=== PATIENT | male | born 1955 | race Caucasian/White ===

== ENCOUNTER 2017-10-19 12:59 | Inpatient (IN) | payer BC ==
[2017-10-19] MEDS ORDERED: NS 0.9% 1000 ML* 1,000 ML IV ONE ×3 (14:15→19:31)
[2017-10-19] MEDS ORDERED: Morphine INJ* 2 MG/ML 1 ML CARPUJECT IV ONE (14:15)
[2017-10-19 14:58] LABS: ABS Basophils 0 10^3/ul (0-0.2); ABS Eosinophils 0 10^3/ul (0-0.6); ABS Lymphocytes 0.7 10^3/ul (1.0-4.8); ABS Monocytes 0.6 10^3/ul (0-0.8); ABS Neutrophils 7.2 10^3/ul (1.5-7.7); ABS Nucleated RBC 0 10^3/ul; Eosinophil % 0 % (0-6); Hematocrit 21 % (42-52); Hemoglobin 7.3 g/dl (14.0-18.0); Lymphocyte % 7.9 % (25-47); Mean Corpuscular HGB Conc 35 g/dl (31-36); Mean Corpuscular Hemoglobin 37 pg (27-31); Mean Corpuscular Volume 105 fL (80-94); Mean Platelet Volume 8 um3 (7.4-10.4); Nucleated Red Blood Cells % 0; Platelet Count 189 10^3/ul (150-450); Red Blood Count 1.97 10^6/ul (4.0-5.4); Red Cell Distribution Width 15 % (10.5-15); White Blood Count 8.5 10^3/ul (3.5-10.8)
[2017-10-19 15:10] LABS: EGFR Non-African American 98.6 (>60)
[2017-10-19] MEDS ORDERED: fentaNYL* 50 MCG/ML 2 ML VIAL (100 MCG VIAL) IV SLOW PU ONE ×2 (15:16→17:13)
[2017-10-19] MEDS ORDERED: Iohexol 300* (CONTRAST) 10 ML SDV IV ONE (15:48)
--- NOTE | 2017-10-19 16:48 | RAD ---
CLINICAL HISTORY: Abdominal pain, back pain COMPARISON: September 22, 2017 TECHNIQUE: Multiple contiguous axial CT scans were obtained of the abdomen and pelvis after the administration of intravenous contrast. Coronal and sagittal multiplanar reformations are submitted for review. Oral contrast was administered. Delayed images were obtained through the abdomen and pelvis. Additionally, small [id number] images were obtained through the lumbar spine with coronal and sagittal multiplanar reformations. FINDINGS: LUNG BASES: The lung bases are clear. LIVER: The liver is normal in shape, size, contour, and attenuation. BILE DUCTS: There is no intrahepatic or extrahepatic biliary dilatation. GALLBLADDER: The gallbladder is normal, without pericholecystic inflammatory change. PANCREAS: The pancreas is normal, without mass or ductal dilatation. SPLEEN: Normal in size and appearance. UPPER GI TRACT: Evaluation of the gastrointestinal tract is limited by incomplete gastric distention. There is mucosal thickening of the distal esophagus and of the proximal body and cardia of the stomach. SMALL BOWEL AND MESENTERY: The small bowel is normal in contour, course, and caliber. There is no obstruction or dilatation. COLON: The colon is normal in contour, course, caliber. There is no pericolonic inflammatory change. There is large amount of stool throughout the colon ADRENALS: Normal bilaterally. KIDNEYS: The kidneys are normal in shape, size, contour, and axis. There is no hydronephrosis or nephrolithiasis. BLADDER: The bladder is smooth in contour. PELVIC ORGANS: The prostate is diffusely enlarged. The seminal vesicles are symmetric. AORTA: The aorta is normal. IVC: Unremarkable LYMPH NODES: There are multiple enlarged lymph nodes along the gastrohepatic ligament and in the retroperitoneum at the level of the celiac axis and within the aortocaval space. These have progressed when compared to September 22, 2017, the largest measuring 2.9 cm in short axis. ABDOMINAL WALL: There are small fat-containing inguinal hernias bilaterally BONES AND SOFT TISSUES: The vertebral bodies are preserved in height. There is mild anterolateral marginal osteophyte formation. There is multifocal lucency of the sacrum which is similar to the previous PET/CT examination. 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 There is no significant osseous neural foraminal narrowing or central canal stenosis. There is mild facet hypertrophic change along the lower lumbar spine OTHER: None IMPRESSION: 1. THERE IS MUCOSAL THICKENING OF THE DISTAL ESOPHAGUS AND PROXIMAL STOMACH CONSISTENT WITH THE HISTORY OF MALIGNANCY. 2. THERE HAS BEEN INTERVAL PROGRESSION OF GASTROHEPATIC AND RETROPERITONEAL LYMPHADENOPATHY WHEN COMPARED TO THE PREVIOUS CT EXAMINATION OF SEPTEMBER 22, 2017. 3. THERE IS MULTIFOCAL LUCENCY OF THE SACRUM WHICH MAY REFLECT OSTEOPENIA VERSUS OSTEOLYTIC METASTATIC DISEASE, SIMILAR TO THE PREVIOUS CT EXAMINATION. 4. THERE IS LARGE AMOUNT OF STOOL THROUGHOUT THE COLON. 5. ENLARGED PROSTATE. 6. SMALL BILATERAL FAT-CONTAINING INGUINAL HERNIAS.
[2017-10-19] MEDS ORDERED: PROCHLORPERAZINE INJ 5 MG/ML 2 ML VIAL IV PRN (18:33)
[2017-10-19] MEDS ORDERED: Acetaminophen TAB* 325 MG PO PRN (18:33)
[2017-10-19] MEDS ORDERED: Magnesium Hydroxide LIQ* 30 ML UDC PO ONE (18:33)
[2017-10-19] MEDS ORDERED: LORazepam INJ* 2 MG/ML 1 ML VIAL IV PUSH ONE (18:44)
[2017-10-19] MEDS: HYDROmorphone INJ* 2 MG/ML CARPUJECT SYRINGE IV SLOW PU PRN ×2 (19:07→22:55)
--- NOTE | 2017-10-19 19:24 | RAD ---
HISTORY: Shortness of breath, cough COMPARISONS: None relevant VIEWS: 1: frontal portable view of the chest at 7:00 PM FINDINGS: LINES AND TUBES: A right-sided chest port is noted with the tip overlying the superior vena cava. CARDIOMEDIASTINAL SILHOUETTE: The cardiomediastinal silhouette is normal for portable technique. PLEURA: The costophrenic angles are sharp. No pleural abnormalities are noted. LUNG PARENCHYMA: The lungs are clear. ABDOMEN: The upper abdomen is clear. There is no subphrenic gas. BONES AND SOFT TISSUES: No bone or soft tissue abnormalities are noted. IMPRESSION: NO ACTIVE CARDIOPULMONARY DISEASE.
[2017-10-19] MEDS: Docusate CAP* 100 MG PO SCH (21:17)
[2017-10-19] MEDS: Heparin VIAL(*) 5000 UNITS/ML VIAL (FIVE THOUSAND) SUBCUT SCH (21:17)
--- NOTE | 2017-10-19 22:50 | HP ---
CC: Dr. Mari; Dr. Banks; Dr. Chavez * HISTORY AND PHYSICAL: DATE OF ADMISSION: 10/19/17 PRIMARY CARE PROVIDER: Dr. Mari. CONSULTING SURGEON: Dr. Chavez. CONSULTING ONCOLOGIST: Dr. Banks. MY ATTENDING PHYSICIAN WHILE IN THE HOSPITAL: Dr. Samantha Robles * (report dictated by Fletcher Carter NP). CHIEF COMPLAINT: Abdominal pain. HISTORY OF PRESENT ILLNESS: Mr. Beckett is a 62-year-old male patient, he carries really only a history of metastatic esophageal cancer, who recently underwent clinical trial of PET scan with a new isotope, that isotope is trastuzumab, underwent that on the middle of last month, he did have finished chemo on the of last month. He initially was doing well, but over the last week, he has been having abdominal discomfort, which has been diffuse and radiating into his back. The patient had the PET scan, he got the results, they noted that the chemo treatment that he has been taking had not been helping. So , they went to go visit his family in [place]. The patient was there for the last week. He has been having intermittent abdominal discomfort. He has been having pain, mostly diffuse in his abdomen. It has been wrapping into his back. He has not had any fevers or chills or any vomiting or diarrhea. He has been having constipation. He has not had a bowel movement in the last couple of days. He denied having any chest pain or any shortness of breath, but there was concern because his discomfort in the last 24 hours ago much worse, and he describes it as a sharp, stabbing pain around the entire, again trunk of his abdomen, going into his back. He again denied any chest pain, shortness of breath, or fevers, or any associated nausea or vomiting today with this, but the pain was really uncontrolled here in the ED. He required several rounds of narcotics, but despite this, he just was not achieving pain control. We were asked to evaluate for admission. PAST MEDICAL HISTORY: Significant for stage IV esophageal cancer. PAST SURGICAL HISTORY: He has had a vasectomy. MEDICATIONS: His home medication includes aspirin 325 p.o. daily as needed. ALLERGIES TO MEDICATIONS: Include PENICILLIN, LEVAQUIN. FAMILY HISTORY: His mother had breast cancer, father had colon cancer, prostate cancer. SOCIAL HISTORY: He does not smoke, does not drink. Surrogate decision maker is his . REVIEW OF SYSTEMS: There is no documented fever. Denied having any significant weight change. There was no double vision. There is no ear discharge. Denies having any rhinorrhea. No sore throat. There is abdominal pain from my HPI. There was no nausea, vomiting. No dysuria, no frequency. There was no seizure, no loss of consciousness. No pruritus and no skin ulcerations. Review of 14 systems completed, all others negative. PHYSICAL EXAMINATION GENERAL: At this time, Mr. Beckett is a 62-year-old male patient, he is sitting in the ED stretcher. He does appear to be in a fair amount of pain. He does not appear to be in any acute respiratory distress. VITAL SIGNS: Blood pressure 120/56, pulse 83, respirations 20, O2 sat 100%, temperature 98.8. HEENT: Head: Atraumatic. Eyes: EOMs are intact. Sclerae are anicteric, not pale. NECK: Supple. Throat: Oral mucosa appears to be moist. No oropharyngeal erythema. LUNGS: Clear to auscultation. No wheezes, rales, or rhonchi. HEART: Sounds S1, S2. Regular rate and rhythm. No murmurs, rubs, or gallops. ABDOMEN: It was tense. Bowel sounds were present. I was unable to reproduce this pain on exam. He had no rebound tenderness, no guarding. EXTREMITIES: Pulses were 2+ throughout. He is moving all 4 extremities with 5/ 5 strength. NEUROLOGIC: The patient is awake, alert, and oriented x3. Tongue midline. Consultant Rn were equal. He had no gross focal deficits. SKIN: Intact. DIAGNOSTIC STUDIES/LAB DATA: WBC of 8.5, RBC of 1.97, hemoglobin 7.3, hematocrit 21, platelet count 189. The sodium was 135, potassium was 4.5, chloride of 104, bicarb 25, BUN 49, creatinine of 0.80, glucose of 119, lactate 2.1, calcium 8.9, mag 2. Total bili 0.8, AST 56, ALT 13, alk phos 53. Ammonia 29. CRP at 12. Lipase and amylase both normal. Serology negative for flu. He had a chest x-ray obtained today, no active cardiopulmonary disease. Lumbar spine CT and abdominal pelvis CT. Impression: Mucosal thickening of the distal esophagus and proximal stomach consistent with history of malignancy. There has been interval progression of gastrohepatic and retroperitoneal lymphadenopathy, compared to the previous CT. There is multifocal lucency in the sacrum, which may represent osteopenia versus osteolytic metastatic disease similar to previous CT. There is a large amount of stool throughout the colon. Large prostate, small bilateral fat containing hernias. Old medical records reviewed. ASSESSMENT AND PLAN: Mr. Beckett is a 62-year-old male patient coming into the ED today with complaints of abdominal pain of unclear etiology. We were asked to evaluate for admission. He will be admitted under observation status for: 1. Abdominal pain. Again, etiology is unclear. I did touch base with his oncology group at [facility]. He is seeing a Dr. Starks, the number is [phone]. Dr. Neal spoke to that group earlier, I spoke to the on-call group bert. It was felt that the pain may be related to progression of disease and not related to reaction to his experimental trastuzumab that he received in the middle of last month. I did touch base with our surgeon. They will be evaluating him tomorrow. He does not appear to be toxic. I did touch base with Dr. Banks, who will evaluate tomorrow. Plan will be for pain control , hydration, monitoring him for any worsening symptoms and intervene as appropriately. For the time being, I will hydrate him, I will place him on clear liquid diet, and will continue to follow him closely. 2. Stage IV esophageal cancer. Again, Dr. Banks will be consulting. 3. DVT prophylaxis. High risk. We will be placed on heparin subcu. 4. Code status. Full code. 5. Fluid, electrolytes, and nutrition. He can have a clear liquid diet. I did order normal saline at 100 an hour. TIME SPENT: On the admission was 60 minutes; greater than half the time was spent [id number] with the patient obtaining my history and physical, other half the time was spent going over the plan of care with the patient and implementing the plan of care. I did discuss plan of care with my attending, Dr. Robles; she is in agreement. FLETCHER CARTERFANG [id number]/[facility] #: [id number] BIRD
[2017-10-19] MEDS: NS 0.9% 1000 ML* 1,000 ML IV SCH ×2 (22:54→23:00)
[2017-10-20 01:23] LABS: Urine Appearance Clear; Urine Blood Negative (Negative); Urine Color Yellow; Urine Ketones Trace (Negative); Urine Protein Negative (Negative); Urine Specific Gravity 1.032 (1.010-1.030); Urine Urobilinogen Negative (Negative)
[2017-10-20] MEDS ORDERED: HYDROmorphone INJ* 2 MG/ML CARPUJECT SYRINGE ONE (01:27)
[2017-10-20] MEDS: HYDROmorphone INJ* 2 MG/ML CARPUJECT SYRINGE IV SLOW PU PRN ×6 (01:32→23:24)
[2017-10-20] MEDS: Heparin VIAL(*) 5000 UNITS/ML VIAL (FIVE THOUSAND) SUBCUT SCH (04:55)
[2017-10-20 07:49] LABS: EGFR Non-African American 125.3 (>60)
[2017-10-20] MEDS: Docusate CAP* 100 MG PO SCH ×2 (08:08→21:25)
[2017-10-20] MEDS: Ondansetron INJ* 2 MG/ML VIAL IV PRN ×2 (08:08→23:24)
[2017-10-20 08:22] LABS: INR 1.14 (0.77-1.02)
[2017-10-20 09:43] LABS: ABS Basophils 0 10^3/ul (0-0.2); ABS Eosinophils 0 10^3/ul (0-0.6); ABS Lymphocytes 0.5 10^3/ul (1.0-4.8); ABS Monocytes 0.5 10^3/ul (0-0.8); ABS Neutrophils 4.6 10^3/ul (1.5-7.7); ABS Nucleated RBC 0 10^3/ul; Eosinophil % 0 % (0-6); Hematocrit 17 % (42-52); Lymphocyte % 9.1 % (25-47); Mean Corpuscular HGB Conc 35 g/dl (31-36); Mean Corpuscular Hemoglobin 37 pg (27-31); Mean Corpuscular Volume 105 fL (80-94); Mean Platelet Volume 7 um3 (7.4-10.4); Nucleated Red Blood Cells % 0; Platelet Count 142 10^3/ul (150-450); Red Blood Count 1.63 10^6/ul (4.0-5.4); Red Cell Distribution Width 15 % (10.5-15); White Blood Count 5.6 10^3/ul (3.5-10.8)
--- NOTE | 2017-10-20 10:47 | PN ---
Subjective Date of Service: 10/20/17 Interval History: Pt examined today at the bedside. States that his pain is controlled with Dilaudid. He denies chest pain and denies sob. States he does not feel lightheaded. Denies abdominal pain currently. Admits to nausea and vomiting. Denies loc. States when he does have abd pain its generalized and radiates to his back. ROS-denies fever, denies chills, denies chest pain, denies sob, denies lightheadedness, denies loc, admits to vomiting, states he is constipated, admits to abdominal pain, review of 11 systems completed all others negative, Objective Active Medications: Acetaminophen (Tylenol Tab*) 650 mg PO Q4H PRN PRN Reason: FEVER/PAIN Docusate Sodium (Colace Cap*) 100 mg PO BID [facility] Last Admin: 10/20/17 08:08 Dose: 100 mg Hydromorphone HCl (Dilaudid Inj*) 1 mg IV SLOW PU Q4H PRN PRN Reason: PAIN Sodium Chloride (Ns 0.9% 1000 Ml*) 1,000 mls @ 125 mls/hr IV PER RATE [facility] Last Admin: 10/19/17 23:00 Dose: 125 mls/hr Ondansetron HCl (Zofran Inj*) 4 mg IV Q6H PRN PRN Reason: NAUSEA Last Admin: 10/20/17 08:08 Dose: 4 mg Prochlorperazine Edisylate (Compazine Inj*) 5 mg IV Q6H PRN PRN Reason: NAUSEA/VOMITING Vital Signs - 8 hr 10/20/17 10/20/17 10/20/17 03:40 04:55 05:03 Temperature 98.7 F Pulse Rate 82 Respiratory 18 20 20 Rate Blood Pressure 105/59 (mmHg) O2 Sat by Pulse 93 Oximetry 10/20/17 10/20/17 10/20/17 05:45 07:38 07:45 Temperature 97.5 F Pulse Rate 79 Respiratory 18 16 16 Rate Blood Pressure 113/54 (mmHg) O2 Sat by Pulse 96 Oximetry 10/20/17 08:09 Temperature Pulse Rate Respiratory 20 Rate Blood Pressure (mmHg) O2 Sat by Pulse Oximetry Oxygen Devices in Use Now: None Appearance: 62 y/o male patient, sitting in bed, NAD, Eyes: No Scleral Icterus, PERRLA, - - scerla is noted to be pale, Ears/Nose/Mouth/Throat: NL Teeth, Lips, Gums, Mucous Membranes Moist Neck: NL Appearance and Movements; NL JVP Respiratory: Symmetrical Chest Expansion and Respiratory Effort, Clear to Auscultation Cardiovascular: NL Sounds; No Murmurs; No JVD Abdominal: - - non distended, non tender on exam, bowel sounds present, Lymphatic: No Cervical Adenopathy Extremities: No Edema Skin: No Rash or Ulcers Neurological: Alert and Oriented x 3 Lines/Tubes/Other Access: Clean, Dry and Intact Peripheral IV Result Diagrams: 10/20/17 07:23 10/20/17 07:23 Assess/Plan/Problems-Billing Assessment: 62 y/o male patient presenting to [facility] [place], [place] with complaints of abd pain of unclear etiology, - Patient Problems (1) Esophageal cancer Current Visit: Yes Status: Acute Priority: High Comment: Currently off treatment, has been receiving care in [facility], obtaining records, last tx was in september, oncology consulted, noted on ct abd pelvis adenopahty of retro- peritoneal, and hepatic gastric area along iwth lesion to his sacrum, (2) Anemia Current Visit: Yes Status: Acute Priority: High Comment: Unclear as to why he has had a drop in h and h, he does admit to vomiting but states he does not see coffee ground appearance and has not had tarry stools, he has at times had blood in his mouth from his gums or sinus and states this has been a chronic issue for several months he has seen ent for this per patient, plan to repeat ct abd plevis to eval for retroperitoneal bleed, gi called, onc to see, transfuse two units prbc, repeat h and h now, checking iron studies, b12, folate , hapotoglobin, ldh, retic count, (3) Abdominal pain Current Visit: Yes Status: Acute Priority: High Comment: etiology unclear , today non tender pain controlled with pain medications but requiring 2 mg dilaudid, etiology unclear, surgery to see, repeat ct today to eval for retroperitoneal bleed, Gi to eval, no signs of infection, discussed case with primary oncology group they believe pain may be from progression of his disease and not related to his recent chemo treatments, (4) DVT prophylaxis Current Visit: Yes Status: Acute Priority: High Comment: SCD,s (5) FEN Current Visit: Yes Status: Acute Priority: High Comment: clear liguid diet , (6) Full code status Current Visit: Yes Status: Acute Priority: High Status and Disposition: home when stable,
[2017-10-20 10:50] LABS: Corrected Retic Count 1.3 % (0.5-1.5); Hematocrit for Retic CNT 17 % (42-52); Immature Retic Fraction 0.67; RBC Retic Count 1.61 10^6/ul (4.6-6.2)
--- NOTE | 2017-10-20 11:20 | RAD ---
INDICATION: Abdominal pain. Drop in hemoglobin and hematocrit. COMPARISON: October 19, 2017 CT. TECHNIQUE: Multidetector CT images were obtained from the lung bases to the ischial tuberosities. Evaluation of the viscera is limited without IV contrast. Multiplanar reformation. REPORT: Mild bibasilar airspace consolidation most consistent with atelectasis given volume loss. Trace bilateral pleural effusions new compared with the exam of one day prior. Negative for pericardial effusion. Unremarkable liver. Vicarious excretion of contrast from the CT of one day prior to the gallbladder without concern. Negative for biliary dilatation. Unremarkable pancreas and spleen. Ill-defined thickening of the distal esophagus and esophagogastric junction without change. Propagation of enteric contrast from the exam of one day prior to the colon. No CT abnormality of the small bowel loops, appendix, or colon. Negative for ascites, free air, or significant hernias. Normal adrenal glands. Negative for hydronephrosis. Distended urinary bladder with pyelographic phase contrast from the CT of one day prior indicating urinary retention. Symmetric seminal vesicles. Vasectomy clips. Retrocrural and GE junction through infrarenal retroperitoneal lymphadenopathy better depicted on the contrast exam of one day prior with financial services representative aortocaval node inferior to the renal vessels measuring up to 2.1 x 2.7 cm. Normal diameter abdominal aorta. Physiologic distention of the IVC. Negative for retroperitoneal or superficial soft tissue hematoma. Unchanged osteosclerosis at the anterior margin of the LEFT femoral head compared with a CT from May 24, 2017 without corresponding increased activity on May 24, 2017 PET/CT. IMPRESSION: 1. Negative for retroperitoneal or superficial soft tissue hematoma. 2. Distended urinary bladder with pyelographic phase contrast from the CT of one day prior indicating urinary retention. Negative for hydronephrosis. 3. Extensive retroperitoneal lymphadenopathy as well as thickened distal esophagus and esophagogastric junction better depicted on the contrast-enhanced exam of one day prior. 4. Mild bibasilar airspace consolidation most consistent with atelectasis given volume loss. Trace bilateral pleural effusions new compared with the exam of one day prior.
[2017-10-20 11:40] LABS: Hematocrit 18 % (42-52); Hemoglobin 6.1 g/dl (14.0-18.0)
[2017-10-20] MEDS ORDERED: Bisacodyl SUPP* 10 MG SUPP PR ONE (14:43)
--- NOTE | 2017-10-20 14:58 | PN ---
Progress Note - Progress Note Date of Service: 10/20/17 Note: Brief Surgery Note: (full consult dictated) S: Hx reviewed. Severe (06/22 abd pain yesterday requiring admission for pain control) w/ h/o stage 4 esophageal Ca, s/p recent tx at [facility] in [facility] (~ 2 wks ago ) and just returned on Wednesday, 10/17, from vacation w/ family in [place] (no suspect exposures or ingestions). Has not move bowels in past few days; passing little flatus. Does have some baseline nausea, as well as hemoptysis (vs hematemesis) which predated his dx (March,), though has been darker of late , without sig change in volume. Had been tolerating regular diet [employer]. Currently his pain level is 5-6/10; he states he has not req'd pain med since 0800. O: tmax 99.5; now 98 other VSS GEN: mildly cachectic-appearing male in NAD Heart: reg Lungs: clear w/ few bibasilar fine crackles, R>L Abd: nondistended; some guarding (appears to be voluntary), but w/o tenderness to palp; no palp masses (there are soft, nontender, reducible bilat inguinal hernias) Labs: Laboratory Tests 10/19/17 10/19/17 10/19/17 14:45 14:45 18:40 WBC 8.5 Hgb 7.3 L MCV 105 H Neut % (Auto) 84.4 H Retic Count, Calc BUN 49 H Creatinine 0.80 Lactic Acid 2.1 H* Iron Lactate Dehydrogenase C-Reactive Protein 12.79 H Albumin 3.7 Amylase 31 Lipase 52 10/20/17 10/20/17 10/20/17 07:23 07:23 11:12 WBC 5.6 Hgb 6.0 L* MCV Neut % (Auto) 81.5 Retic Count, Calc 3.4 H BUN 30 H Creatinine 0.65 L Lactic Acid 1.1 Iron 31 L Lactate Dehydrogenase 757 H C-Reactive Protein Albumin Amylase Lipase 10/20/17 11:12 WBC Hgb 6.1 L* MCV Neut % (Auto) Retic Count, Calc BUN Creatinine Lactic Acid Iron Lactate Dehydrogenase C-Reactive Protein Albumin Amylase Lipase CT 10/19/17: personally reviewed and with Dr. Mecenas: CLINICAL HISTORY: Abdominal pain, back pain COMPARISON: September 22, 2017 TECHNIQUE: Multiple contiguous axial CT scans were obtained of the abdomen and pelvis after the administration of intravenous contrast. Coronal and sagittal multiplanar reformations are submitted for review. Oral contrast was administered. Delayed images were obtained through the abdomen and pelvis. Additionally, small [id number] images were obtained through the lumbar spine with coronal and sagittal multiplanar reformations. FINDINGS: LUNG BASES: The lung bases are clear. LIVER: The liver is normal in shape, size, contour, and attenuation. BILE DUCTS: There is no intrahepatic or extrahepatic biliary dilatation. GALLBLADDER: The gallbladder is normal, without pericholecystic inflammatory change. PANCREAS: The pancreas is normal, without mass or ductal dilatation. SPLEEN: Normal in size and appearance. UPPER GI TRACT: Evaluation of the gastrointestinal tract is limited by incomplete gastric distention. There is mucosal thickening of the distal esophagus and of the proximal body and cardia of the stomach. SMALL BOWEL AND MESENTERY: The small bowel is normal in contour, course, and caliber. There is no obstruction or dilatation. COLON: The colon is normal in contour, course, caliber. There is no pericolonic inflammatory change. There is large amount of stool throughout the colon ADRENALS: Normal bilaterally. KIDNEYS: The kidneys are normal in shape, size, contour, and axis. There is no hydronephrosis or nephrolithiasis. BLADDER: The bladder is smooth in contour. PELVIC ORGANS: The prostate is diffusely enlarged. The seminal vesicles are symmetric. AORTA: The aorta is normal. IVC: Unremarkable LYMPH NODES: There are multiple enlarged lymph nodes along the gastrohepatic ligament and in the retroperitoneum at the level of the celiac axis and within the aortocaval space. These have progressed when compared to September 22, 2017, the largest measuring 2.9 cm in short axis. ABDOMINAL WALL: There are small fat-containing inguinal hernias bilaterally BONES AND SOFT TISSUES: The vertebral bodies are preserved in height. There is mild anterolateral marginal osteophyte formation. There is multifocal lucency of the sacrum which is similar to the previous PET/CT examination. 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 There is no significant osseous neural foraminal narrowing or central canal stenosis. There is mild facet hypertrophic change along the lower lumbar spine OTHER: None IMPRESSION: 1. THERE IS MUCOSAL THICKENING OF THE DISTAL ESOPHAGUS AND PROXIMAL STOMACH CONSISTENT WITH THE HISTORY OF MALIGNANCY. 2. THERE HAS BEEN INTERVAL PROGRESSION OF GASTROHEPATIC AND RETROPERITONEAL [facility] Patient Name:CHRISTIN DAN MR:[id number] : 1955 LYMPHADENOPATHY WHEN COMPARED TO THE PREVIOUS CT EXAMINATION OF SEPTEMBER 22, 2017. 3. THERE IS MULTIFOCAL LUCENCY OF THE SACRUM WHICH MAY REFLECT OSTEOPENIA VERSUS OSTEOLYTIC METASTATIC DISEASE, SIMILAR TO THE PREVIOUS CT EXAMINATION. 4. THERE IS LARGE AMOUNT OF STOOL THROUGHOUT THE COLON. 5. ENLARGED PROSTATE. 6. SMALL BILATERAL FAT-CONTAINING INGUINAL HERNIAS. Repeat today w/o constrast: INDICATION: Abdominal pain. Drop in hemoglobin and hematocrit. COMPARISON: October 19, 2017 CT. TECHNIQUE: Multidetector CT images were obtained from the lung bases to the ischial tuberosities. Evaluation of the viscera is limited without IV contrast. Multiplanar reformation. REPORT: Mild bibasilar airspace consolidation most consistent with atelectasis given volume loss. Trace bilateral pleural effusions new compared with the exam of one day prior. Negative for pericardial effusion. Unremarkable liver. Vicarious excretion of contrast from the CT of one day prior to the gallbladder without concern. Negative for biliary dilatation. Unremarkable pancreas and spleen. Ill-defined thickening of the distal esophagus and esophagogastric junction without change. Propagation of enteric contrast from the exam of one day prior to the colon. No CT abnormality of the small bowel loops, appendix, or colon. Negative for ascites, free air, or significant hernias. Normal adrenal glands. Negative for hydronephrosis. Distended urinary bladder with pyelographic phase contrast from the CT of one day prior indicating urinary retention. Symmetric seminal vesicles. Vasectomy clips. Retrocrural and GE junction through infrarenal retroperitoneal lymphadenopathy better depicted on the contrast exam of one day prior with leather goods sales representative aortocaval node inferior to the renal vessels measuring up to 2.1 x 2.7 cm. Normal diameter abdominal aorta. Physiologic distention of the IVC. Negative for retroperitoneal or superficial soft tissue hematoma. Unchanged osteosclerosis at the anterior margin of the LEFT femoral head compared with a CT from May 24, 2017 without corresponding increased activity on May 24, 2017 PET/CT. IMPRESSION: 1. Negative for retroperitoneal or superficial soft tissue hematoma. 2. Distended urinary bladder with pyelographic phase contrast from the CT of one day prior indicating urinary retention. Negative for hydronephrosis. 3. Extensive retroperitoneal lymphadenopathy as well as thickened distal esophagus and esophagogastric junction better depicted on the contrast-enhanced exam of one day prior. 4. Mild bibasilar airspace consolidation most consistent with atelectasis given volume loss. Trace bilateral pleural effusions new compared with the exam of one day prior. A: abd pain and anemia of undetermined etiology in patient w/ advanced esophageal ca; there does not appear to be an acute surgical reason for his pain (no obstruction, evidence of perforation or intraperitoneal bleed. His pain may indeed be disease oriented, but also may be functional GI, i.e. constipation (colicky in nature w/ CT evidence of sig colonic gas and stool. P: if ok w/ hospitalist, will adv diet; try dulcolax supp; may need add'l and ongoing bowel regimen (constipation has been an ongoing issue.) Will follow while he is inhouse.
--- NOTE | 2017-10-20 18:16 | ED ---
Richard Castano Angela, scribed for Mario Neal MD on 10/19/17 at 1403 . Back Pain - HPI Summary HPI Summary: This pt is a 62 y/o male presenting to [facility] c/o lower back pain and "pain all over" for a few days now. Pt describes his pain radiates to his pelvis and abdomen. Pt has been on clinical trial at [facility] for gastroesophageal adenocarcinoma stage 4. His last chemo pill was on March 30, 2017, and last IV treatment was on 2016. Pt then was given a chemo drug isotope with "long half life" and has scans. Pt states that after the scans he has not been feeling well with a lot of pain. He went on vacation with his for 11 days after the scan. He had an endoscopy done right before his vacation and had tissue biopsy as well. Pt returned home 2 days ago and was on a plane, which exacerbated his pain. He went to acupuncture today with no relief. Pt denies fever, chills, nausea, vomiting, diarrhea, constipation, urinary or bowel incontinence. He has only taken aspirin and ibuprofen during this time for the pain. Pt and would like to connect with Dr. Banks. They have only seen Dr. Juarez once when pt was diagnosed with CA. Pt's oncologist at [facility] is: Dr. Carin Starks Number: [phone] - History of Current Complaint Chief Complaint: EDBackInjuryPain Stated Complaint: BODY PAIN Time Seen by Provider: 10/19/17 14:01 Hx Obtained From: Patient Onset/Duration: Lasting Days, Still Present Onset/Duration: Started Days Ago, Atraumatic, Still Present Timing: Lasting Days Back Pain Location: Is Diffuse - all over body, Is Discrete @ - lower back pain Severity Currently: Severe Pain Intensity: 10 Pain Scale Used: 0-10 Numeric Aggravating Symptom(s): Movement Alleviating Symptom(s): Nothing Associated Signs And Symptoms: Positive: Abdominal Pain. Negative: Fever, Bladder Incontinence, Bowel Incontinence - Allergies/Home Medications Allergies/Adverse Reactions: Allergies Allergy/AdvReac Type Severity Reaction Status Date / Time Penicillins Allergy Severe Hives Verified 10/19/17 18:42 lanolin Allergy Rash Verified 10/19/17 18:42 METHATHIASOLONE Allergy Severe Rash Uncoded 12/14/12 14:04 Home Medications: Home Medications Aspirin TAB* [Aspirin 325 MG TAB*] 325 mg PO DAILY PRN 10/19/17 [History Confirmed 10/19/17] PMH/Surg Hx/FS Hx/Imm Hx Musculoskeletal History: Reports: Hx Bursitis - RT ELBOW IN PAST Sensory History: Denies: Hx Contacts or Glasses, Hx Hearing Aid Opthamlomology History: Denies: Hx Contacts or Glasses - Cancer History Cancer Type, 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 - Social History Alcohol Use: Rare Substance Use Type: Reports: None Smoking Status (MU): Former Smoker Review of Systems Negative: Fever, Chills Positive: Abdominal Pain. Negative: Vomiting, Diarrhea, Nausea, Other - constipation Negative: incontinence Musculoskeletal: Other - back pain, pelvis pain All Other Systems Reviewed And Are Negative: Yes Physical Exam - Summary Physical Exam Summary: VITAL SIGNS: Reviewed. GENERAL: Patient is a well-developed and nourished male who is in distress secondary to pain. HEAD AND FACE: No signs of trauma. No ecchymosis, hematomas or skull depressions. No sinus tenderness. EYES: PERRLA, EOMI x 2, No injected conjunctiva, no nystagmus. EARS: Hearing grossly intact. Ear canals and tympanic membranes are within normal limits. MOUTH: Oropharynx within normal limits. NECK: Supple, trachea is midline, no adenopathy, no JVD, no carotid bruit, no c- spine tenderness, neck with full ROM. CHEST: Symmetric, no tenderness at palpation LUNGS: Clear to auscultation bilaterally. No wheezing or crackles. CVS: Regular rate and rhythm, S1 and S2 present, no murmurs or gallops appreciated. ABDOMEN: Soft. Diffuse abdominal tenderness. No signs of distention. No rebound no guarding, and no masses palpated. Bowel sounds are normal. EXTREMITIES: no edema, no cyanosis or clubbing. He has tenderness in the lumbar spine. NEURO: Alert and oriented x 3. No acute neurological deficits. Speech is normal and follows commands. SKIN: Dry and warm Triage Information Reviewed: Yes Vital Signs On Initial Exam: Initial Vitals Temp Pulse Resp BP Pulse Ox 97.2 F 96 20 107/72 100 10/19/17 13:02 10/19/17 13:02 10/19/17 13:02 10/19/17 13:02 10/19/17 13:02 Vital Signs Reviewed: Yes Diagnostics - Vital Signs Vital Signs Temp Pulse Resp BP Pulse Ox 10/19/17 13:02 97.2 F 96 20 107/72 100 - Laboratory Result Diagrams: 10/19/17 14:45 10/19/17 14:45 Lab Statement: Any lab studies that have been ordered have been reviewed, and results considered in the medical decision making process. - CT Abdomen/Pelvis CT CT Interpretation: Positive (See Comments) - IMPRESSION: 1. There is mucosal thickening of the distal esophagus and proximal stomach consistent with the history of malignancy. 2. There has been interval progression of gastrohepatic and retroperitoneal lymphadenopathy when compared to the previous CT examination of September 22, 2017. 3. There is multifocal lucency of the sacrum which may reflect osteopenia versus osteolytic metastatic disease, similar to the previous CT examination. 4. There is large amount of stool throughout the colon. 5. Enlarged prostate. 6. Small bilateral fat-contaning inguinal hernias. Dr. Neal has reviewed this radiology report. CT Interpretation Completed By: Radiologist Lumbar spine CT CT Interpretation: Positive (See Comments) - IMPRESSION: 1. There is mucosal thickening of the distal esophagus and proximal stomach consistent with the history of malignancy. 2. There has been interval progression of gastrohepatic and retroperitoneal lymphadenopathy when compared to the previous CT examination of September 22, 2017. 3. There is multifocal lucency of the sacrum which may reflect osteopenia versus osteolytic metastatic disease, similar to the previous CT examination. 4. There is large amount of stool throughout the colon. 5. Enlarged prostate. 6. Small bilateral fat-contaning inguinal hernias. Dr. Neal has reviewed this radiology report. CT Interpretation Completed By: Radiologist Back Pain Course/Dx - Course Assessment/Plan: This pt is a 62 y/o male presenting to [facility] c/o lower back pain and "pain all over" for a few days now. Pt describes his pain radiates to his pelvis and abdomen. Pt has been on clinical trial at [facility] for gastroesophageal adenocarcinoma stage 4. His last chemo pill was on March 30, 2017, and last IV treatment was on 2016. Pt then was given a chemo drug isotope with "long half life" and has scans. Pt states that after the scans he has not been feeling well with a lot of pain. He went on vacation with his for 11 days after the scan. He had an endoscopy done right before his vacation and had tissue biopsy as well. Pt returned home 2 days ago and was on a plane, which exacerbated his pain. He went to acupuncture today with no relief. Pt denies fever, chills, nausea, vomiting, diarrhea, constipation, urinary or bowel incontinence. Test results shows anemia with hemoglobin of 7.3 , hematocrit of 21. Glucose 119, CRP of 12.7. Influenza A and B is negative. In the ED course the pt was given IV fluids and morphine for the pain. Abdomen/ pelvis and lumbar spine CT: 1. There is mucosal thickening of the distal esophagus and proximal stomach consistent with the history of malignancy. 2. There has been interval progression of gastrohepatic and retroperitoneal lymphadenopathy when compared to the previous CT examination of September 22, 2017. 3. There is multifocal lucency of the sacrum which may reflect osteopenia versus osteolytic metastatic disease, similar to the previous CT examination. 4. There is large amount of stool throughout the colon. 5. Enlarged prostate. 6. Small bilateral fat-contaning inguinal hernias. The pt continues to have pain, therefore he was given 2 doses of fentanyl. The pain is still present and has only mildly decreased. I discussed the case with Dr. Banks who recommends admission to medical team and he will consult on the pt. I discussed the case with Dr. Robles, hospitalist, who has accepted the pt for admission. Pt is hemodynamically stable, alert and oriented x3. - Diagnoses Provider Diagnoses: Abdominal pain, Back pain, Intractable pain, Pain control - Provider Notifications Discussed Care Of Patient With: Bhargav Banks Time Discussed With Above Provider: 15:15 Instructed by Provider To: Other - I discussed pt care with Dr. Banks, oncologist, who reports that since they haven't seen the pt for a while they want the pt admitted to the hospitalist, and they will consult on the pt. [17:19 ] I discussed the case with Dr. Robles, hospitatlist, who has accepted the pt for admission. Discharge - Discharge Plan Condition: Stable Disposition: ADMITTED TO [facility] Referrals: Anabella Mari MD [Primary Care Provider] - The documentation as recorded by the Richard javier Angela accurately reflects the service I personally performed and the decisions made by , Mario Neal MD.
--- NOTE | 2017-10-20 20:03 | CONS ---
CC: Dr. Mari; Dr. Banks * SURGICAL CONSULT NOTE: DATE OF CONSULT: 10/20/17 ATTENDING SURGEON: Dr. Mike Chavez (YAO Harrington dictating). CHIEF COMPLAINT: Abdominal pain. HISTORY OF PRESENT ILLNESS: This is a 62-year-old gentleman diagnosed with stage IV esophageal cancer in March of 2017. He had just completed a treatment through [facility] in [place] about 2 weeks ago (see details in his record ). He then went on vacation with his family to [place] and returned here on Wednesday. He states that he had the beginnings of some pain during the trip with exacerbation of lumbar pain from the flight home. The pain then increased on Wednesday and became severe on Wednesday at which time he presented to the ED. He describes bilateral flank pain radiating around to the abdomen, sometimes with radiation to the pelvis and other times across the upper abdomen. There is some accompanying nausea though not much different from his baseline. He denies vomiting or hematemesis (he actually has a baseline history of daily hematemesis (versus hemoptysis) with negative ENT workup. This had previously been typically bright red, but of late had been darker, though not significantly unchanged in volume). He describes the pain as colicky in nature. He has not had a bowel movement in number of days and has passed little flatus in the past 2 days. He has been tolerating regular diet of late. He has had some issues with constipation, particularly with his initial chemotherapy. Of late, he describes bowel movements as being less hard and small, but still difficult to evacuate. Pain was as high as 10/10 yesterday. He did require significant pain medication since admission, though states that it is improved today and that he has not required any pain medication since 8 o' clock this morning, though it is increasing somewhat to the point where he is considering that at the present time. The remainder of his past medical history is outlined in his admission history and physical and I have no other additions other than the fact that he has had previously known bilateral inguinal hernias, which have been asymptomatic. PHYSICAL EXAMINATION: Vital Signs: His maximum temperature 99.5, currently down to 98, blood pressure 110/63, pulse 75, respirations 16, room air saturation 96%. Height 6 feet 3 inches, weight 175 pounds with a BMI of 22. He states that he has had a net weight loss of about 30 pounds. General: Well- nourished, though mildly cachectic appearing male, in no acute distress. He is somewhat sallow appearing. Skin: Warm and dry. No suspicious rashes or lesions. Heart: Regular rate and rhythm. No murmur noted. Lungs: Clear to auscultation with few fine bibasilar crackles, right greater than left. Abdomen : Flat, nondistended. Bowel sounds are present, though somewhat hypoactive, soft. Though, he does have some voluntary guarding and he finds it difficult to relax completely. Nonetheless, there does not appear to be any significant palpable tenderness and no palpable masses, organomegaly, though exam is limited. He does have bilateral palpable reducible nontender inguinal hernias. Back: No spinous process or tenderness. He does have some mild bilateral CVA tenderness. DIAGNOSTIC STUDIES/LAB DATA: White blood cell count on admission 8.5 with repeat 5.6. He does have bit of a left shift. He is anemic with presenting hemoglobin of 7.3 with repeat at 6.0 and he is currently receiving a transfusion. His indices indicate macrocytosis. Platelet count currently 142 versus 189 on admission. His reticulocyte count is 3.4. Chemistries are notable for BUN of 49 on admission with repeat of 30, creatinine is normal, initial lactic acid 2.1 with repeat of 1.1, ferritin is elevated at 838, AST mildly elevated at 56. Other liver function tests are normal with the exception of LDH, which is 757. CRP mildly elevated at 12.8. Amylase and lipase are normal. His urinalysis is essentially normal other than elevated specific gravity and trace ketones. CT of the abdomen and pelvis with contrast from yesterday and then repeat scan without contrast from today were both reviewed personally and with Dr. Chavez. They are notable for the presence of progressive gastrohepatic and retroperitoneal lymphadenopathy (versus prior CT from 09/22/17), bilateral fat containing inguinal hernias, some prostate enlargement, and large amount of stool throughout the colon. IMPRESSION: Abdominal pain with anemia of undetermined etiology in a patient with advanced esophageal cancer. There do not seem to be any surgical indications and in fact the colicky nature of his pain and lack of bowel movement and flatus in the past few days may be indicative of constipation/ obstipation. Again, there are no surgical indications and this was communicated to my attending, Dr. Chavez. If acceptable to the Hospitalist, we will advance his diet and order Dulcolax suppository. Additional bowel regimen may be indicated as this appears to be ongoing problem in the past. He is considering further evaluation in [facility] (he was intending to travel there today), though he is unsure about pursuing additional second-line treatment regimen. YAO HARRINGTON [id number]/[facility] #: [id number] MTDEloisa
--- NOTE | 2017-10-20 20:44 | CONS ---
CC: Kyree Mccord MD; Dr. Mari * GI CONSULTATION NOTE: DATE OF CONSULTATION: 10/20/17 REASON FOR CONSULTATION: Abdominal pain, nausea, vomiting, and anemia. HISTORY OF PRESENT ILLNESS: A 62-year-old gentleman with established history of stage IV esophageal cancer, which was diagnosed upon EGD in March [address] Fong, who has been treated at [facility] in [facility]. He reports that he had a recent EGD performed at [facility] on 09/23/17, which revealed persistent mass in the lower esophagus and therefore the trial chemotherapy was stopped. His last dose of chemo treatment was 09/18/17. The patient reports that he has been complaining of back pain after a recent traveled to [place]. He feels that the pain radiates to the front of the abdomen from the back. He has also been complaining of intermittent nausea and a few episodes of nonbloody emesis. He still has complaint of dysphagia, but takes soft diet. His recent CT scan during hospitalization showed mucosal thickening in the distal esophagus and proximal stomach consistent with a history of malignancy along with interval progression of gastrohepatic and retroperitoneal lymphadenopathy as compared to the previous CT scan. There were also osteolytic lesions in the sacrum similar to the previous scan. His labs showed hemoglobin of 7.3. AST was also slightly elevated in the range of 56. ALT, alkaline phosphatase and total bilirubin were within normal range. PAST SURGICAL HISTORY: Vasectomy. MEDICATIONS: At home include aspirin as needed. ALLERGIES: PENICILLIN and LEVAQUIN. FAMILY HISTORY: Mother had breast cancer. Father had colon and prostate cancer. SOCIAL HISTORY: Nonsmoker. No alcohol use. REVIEW OF SYSTEMS: No complaint of hematemesis, melena, or hematochezia. No complaint of chest pain. He complains of dysphagia to solids. PHYSICAL EXAMINATION: Middle-aged gentleman, lying in the bed, without any acute distress. Vital Signs: Stable. Skin: Warm, dry without rash. Neck: Supple. No JVD. No lymphadenopathy. Chest: Clear to auscultation. Heart: S1 , S2. Regular rate and rhythm without murmurs. Abdomen: Guarding, but no tenderness. No organomegaly appreciated. Extremities: Without edema, clubbing , or cyanosis. Neurologic: Alert, awake, oriented to time, place, person. ASSESSMENT: 1. A 62-year-old gentleman with history of stage IV esophageal cancer diagnosed in March 2017, who has been in treatment trial at [facility], but appears to have a progression of disease. Therefore, his treatment was stopped on 09/18/17. He appears to have metastatic lesions in the lower spine or sacrum with back pain radiating to the front of the abdomen. The abdominal pain appears to be referred pain from the back and could be neuropathic in nature. 2. Intermittent nausea, vomiting of unclear etiology. 3. Anemia probably due to oozing from previously known cancer. RECOMMENDATIONS: 1. Advise to continue supportive care and use ondansetron as needed for nausea , vomiting. 2. Monitor CBC and transfuse as needed. 3. Pain control with narcotics. Thank you for letting us participate and take care of this patient. [id number]/[facility] #: [id number] [facility]
[2017-10-20] MEDS: Magnesium Hydroxide LIQ* 30 ML UDC PO SCH (21:25)
[2017-10-20 21:43] LABS: Hematocrit 21 % (42-52); Hemoglobin 7.4 g/dl (14.0-18.0)
[2017-10-21] MEDS: NS 0.9% 1000 ML* 1,000 ML IV SCH ×2 (00:40→08:56)
[2017-10-21] MEDS ORDERED: Magnesium Hydroxide LIQ* 30 ML UDC ONE (04:01)
[2017-10-21] MEDS: HYDROmorphone INJ* 2 MG/ML CARPUJECT SYRINGE IV SLOW PU PRN ×2 (04:06→07:49)
[2017-10-21] MEDS: Magnesium Hydroxide LIQ* 30 ML UDC PO SCH (04:06)
[2017-10-21 06:47] LABS: ABS Basophils 0 10^3/ul (0-0.2); ABS Eosinophils 0 10^3/ul (0-0.6); ABS Lymphocytes 0.4 10^3/ul (1.0-4.8); ABS Monocytes 0.6 10^3/ul (0-0.8); ABS Neutrophils 3.4 10^3/ul (1.5-7.7); ABS Nucleated RBC 0 10^3/ul; Eosinophil % 0 % (0-6); Hematocrit 21 % (42-52); Hemoglobin 7.4 g/dl (14.0-18.0); Lymphocyte % 10.3 % (25-47); Mean Corpuscular HGB Conc 36 g/dl (31-36); Mean Corpuscular Hemoglobin 35 pg (27-31); Mean Corpuscular Volume 98 fL (80-94); Mean Platelet Volume 7 um3 (7.4-10.4); Nucleated Red Blood Cells % 0.2; Platelet Count 144 10^3/ul (150-450); Red Cell Distribution Width 19 % (10.5-15); White Blood Count 4.4 10^3/ul (3.5-10.8)
[2017-10-21 07:03] LABS: EGFR Non-African American 145.8 (>60)
[2017-10-21] MEDS: Bisacodyl SUPP* 10 MG SUPP PR PRN (07:18)
[2017-10-21] MEDS ORDERED: Cyclobenzaprine TAB* 10 MG PO PRN (07:52)
[2017-10-21] MEDS ORDERED: HYDROmorphone INJ* 2 MG/ML CARPUJECT SYRINGE IV SLOW PU PRN ×2 (07:53→15:01)
[2017-10-21] MEDS ORDERED: HYDROmorphone INJ* 2 MG/ML CARPUJECT SYRINGE IV SLOW PU ONE (07:55)
--- NOTE | 2017-10-21 08:16 | PN ---
Progress Note - Progress Note Date of Service: 10/21/17 SOAP: Subjective: Patient initially seen once by me in May of 2017 when he was diagnosed with metastatic esophageal CA that [facility] identified as Her2 positive (negative here). He opted to transfer his care to [facility], and was started on trial on protocol [id number], with xeloda, oxaliplatin, trastuzumab and pembrolizumab. He reports that he initially had a good response to therapy, however on his recent imaging had marked POD. He has a known left iliac crest metastasis. He went on a trip to [place] with his family and reports significant increase in lower back pain on the flight back. Pain is radiating around to the front and is colicky in nature. he also has not had a bowel movement in 6 days. + neuropathy from chemotherapy, mostly cold induced. He is very unsure if he wants any further therapy, though would be interested in palliative measures ( like RT) Objective: Vital Signs Temp Pulse Resp BP Pulse Ox 98.4 F 82 22 138/70 95 10/21/17 04:08 10/21/17 04:08 10/21/17 07:49 10/21/17 04:08 10/21/17 04:08 perr eomi op moist CTA bl s1 s2 nl firm, dec bs, nontender no le edema 4/5 strength limited by pain A+O x 3,nonfocal neurological exam Laboratory Results - last 24 hr 10/19/17 10/20/17 10/20/17 14:45 07:23 07:23 WBC 5.6 RBC 1.63 L RBC (Retic) 1.61 L Hgb 6.0 L* Hct 17 L HCT (Retic) 17 L MCV 105 H MCH 37 H MCHC 35 RDW 15 Plt Count 142 L MPV 7 L Neut % (Auto) 81.5 Lymph % (Auto) 9.1 L [place] % (Auto) 9.0 Eos % (Auto) 0 Baso % (Auto) 0.4 Absolute Neuts (auto) 4.6 Absolute Lymphs (auto) 0.5 L Absolute Monos (auto) 0.5 Absolute Eos (auto) 0 Absolute Basos (auto) 0 Absolute Nucleated RBC 0 Nucleated RBC % 0 Retic Count, Calc 3.4 H Corrected Retic Count 1.3 Retic Shift Factor 2.5 Retic Production Index 0.50 Immature Retic Fraction 0.67 Mean Retic Volume 140.8 INR (Anticoag Therapy) 1.14 H Sodium Potassium Chloride Carbon Dioxide Anion Gap BUN Creatinine Est GFR ( Amer) Est GFR (Non-Af Amer) BUN/Creatinine Ratio Glucose Lactic Acid Calcium Iron TIBC % Saturation Unsat Iron Binding Ferritin Lactate Dehydrogenase Vitamin B12 Folate Blood Type A Positive Antibody Screen Negative Direct Antiglob Test Crossmatch See Detail 10/20/17 10/20/17 10/20/17 07:23 07:23 11:12 WBC RBC RBC (Retic) Hgb Hct HCT (Retic) MCV MCH MCHC RDW Plt Count MPV Neut % (Auto) Lymph % (Auto) [place] % (Auto) Eos % (Auto) Baso % (Auto) Absolute Neuts (auto) Absolute Lymphs (auto) Absolute Monos (auto) Absolute Eos (auto) Absolute Basos (auto) Absolute Nucleated RBC Nucleated RBC % Retic Count, Calc Corrected Retic Count Retic Shift Factor Retic Production Index Immature Retic Fraction Mean Retic Volume INR (Anticoag Therapy) Sodium 136 Potassium 3.7 Chloride 105 Carbon Dioxide 25 Anion Gap 6 BUN 30 H Creatinine 0.65 L Est GFR ( Amer) 161.2 Est GFR (Non-Af Amer) 125.3 BUN/Creatinine Ratio 46.2 H Glucose 134 H Lactic Acid 1.1 Calcium 8.5 L Iron 31 L TIBC 343 % Saturation 9 L Unsat Iron Binding 312 Ferritin 837.6 H Lactate Dehydrogenase 757 H Vitamin B12 > 1450 H Folate 17.71 Blood Type Antibody Screen Direct Antiglob Test Negative Crossmatch 10/20/17 10/20/17 10/21/17 11:12 21:30 06:30 WBC RBC RBC (Retic) Hgb 6.1 L* 7.4 L Hct 18 L 21 L HCT (Retic) MCV MCH MCHC RDW Plt Count MPV Neut % (Auto) Lymph % (Auto) [place] % (Auto) Eos % (Auto) Baso % (Auto) Absolute Neuts (auto) Absolute Lymphs (auto) Absolute Monos (auto) Absolute Eos (auto) Absolute Basos (auto) Absolute Nucleated RBC Nucleated RBC % Retic Count, Calc Corrected Retic Count Retic Shift Factor Retic Production Index Immature Retic Fraction Mean Retic Volume INR (Anticoag Therapy) Sodium 134 Potassium 3.9 Chloride 102 Carbon Dioxide 28 Anion Gap 4 BUN 20 Creatinine 0.57 L Est GFR ( Amer) 187.5 Est GFR (Non-Af Amer) 145.8 BUN/Creatinine Ratio 35.1 H Glucose 108 H Lactic Acid Calcium 8.4 L Iron TIBC % Saturation Unsat Iron Binding Ferritin Lactate Dehydrogenase Vitamin B12 Folate Blood Type Antibody Screen Direct Antiglob Test Crossmatch 10/21/17 06:30 WBC 4.4 RBC 2.10 L RBC (Retic) Hgb 7.4 L Hct 21 L HCT (Retic) MCV 98 H MCH 35 H MCHC 36 RDW 19 H Plt Count 144 L MPV 7 L Neut % (Auto) 76.7 Lymph % (Auto) 10.3 L [place] % (Auto) 12.8 H Eos % (Auto) 0 Baso % (Auto) 0.2 Absolute Neuts (auto) 3.4 Absolute Lymphs (auto) 0.4 L Absolute Monos (auto) 0.6 Absolute Eos (auto) 0 Absolute Basos (auto) 0 Absolute Nucleated RBC 0 Nucleated RBC % 0.2 Retic Count, Calc Corrected Retic Count Retic Shift Factor Retic Production Index Immature Retic Fraction Mean Retic Volume INR (Anticoag Therapy) Sodium Potassium Chloride Carbon Dioxide Anion Gap BUN Creatinine Est GFR ( Amer) Est GFR (Non-Af Amer) BUN/Creatinine Ratio Glucose Lactic Acid Calcium Iron TIBC % Saturation Unsat Iron Binding Ferritin Lactate Dehydrogenase Vitamin B12 Folate Blood Type Antibody Screen Direct Antiglob Test Crossmatch Acetaminophen (Tylenol Tab*) 650 mg PO Q4H PRN PRN Reason: FEVER/PAIN Bisacodyl (Dulcolax Supp*) 10 mg AK DAILY PRN PRN Reason: CONSTIPATION Last Admin: 10/21/17 07:18 Dose: 10 mg Cyclobenzaprine HCl (Flexeril Tab*) 10 mg PO TID PRN PRN Reason: PAIN Docusate Sodium (Colace Cap*) 100 mg PO BID [facility] Last Admin: 10/20/17 21:25 Dose: 100 mg Hydromorphone HCl (Dilaudid Inj*) 2 mg IV SLOW PU Q4H PRN PRN Reason: PAIN Sodium Chloride (Ns 0.9% 1000 Ml*) 1,000 mls @ 125 mls/hr IV PER RATE [facility] Last Admin: 10/21/17 00:40 Dose: 125 mls/hr Lactulose (Lactulose*) 30 ml PO QID [facility] Ondansetron HCl (Zofran Inj*) 4 mg IV Q6H PRN PRN Reason: NAUSEA Last Admin: 10/20/17 23:24 Dose: 4 mg Prochlorperazine Edisylate (Compazine Inj*) 5 mg IV Q6H PRN PRN Reason: NAUSEA/VOMITING Assessment: 62 yo M w metastatic esophageal CA, recently on palliative Xeloda/Oxaliplatin/ Pembrolizumab/Trastuzumab with marked POD presenting with "abdominal pain". I am actually most suspicious that the pain is either radiating from his spine or related to his retroperitoneal adenopathy. I would like to get thoracic, LS and pelvis MRIs to assess bony disease, which he is in agreement with. In terms of his anemia, it is not clear to me what this is from. His direct coomb' s was negative as was his stool guaiac. I will look at a peripheral smear, but if there is significant bony involvement this may be related to marrow infiltration. In terms of his pain, I did increase his dilaudid back to 2 mg (1 mg clearly not holding him) and added flexeril. In terms of his obstipation, I have added lactulose to his regimen. Thank you for this consultation and we will continue to follow with you.
[2017-10-21] MEDS: Docusate CAP* 100 MG PO SCH (08:44)
[2017-10-21] MEDS ORDERED: Sodium Phosphate ADULT ENEMA* 118 ml bottle PR PRN (13:40)
[2017-10-21] MEDS ORDERED: Gadoteridol* (CONTRAST) 279.3 MG/ML 10 ML IV ONE (14:29)
--- NOTE | 2017-10-21 14:33 | PN ---
Progress Note - Progress Note Date of Service: 10/21/17 Note: S: Still having abd pain req Dilaudid (just increased to 2 mg). No stool or flatus. Enema and lactulose ordered. Eli some diet; variable nausea. O: Vital Signs - 8 hr 10/21/17 10/21/17 10/21/17 07:43 07:49 08:43 Temperature 97.9 F Pulse Rate 80 Respiratory 16 22 20 Rate Blood Pressure 140/74 (mmHg) O2 Sat by Pulse 94 Oximetry 10/21/17 10/21/17 10/21/17 08:45 08:53 09:01 Temperature Pulse Rate Respiratory 20 20 20 Rate Blood Pressure (mmHg) O2 Sat by Pulse Oximetry 10/21/17 10/21/17 10/21/17 10:35 11:57 12:46 Temperature 97.8 F Pulse Rate 73 Respiratory 20 16 20 Rate Blood Pressure 114/66 (mmHg) O2 Sat by Pulse 95 Oximetry Heart: reg Lungs: clear Abd: mildly distended; few BS; firm (vol guarding?); min tenderness to palp A/P: ongoing abd pain (progression of disease?) w/ sig constipation/obstipation ; now getting lactulose; poss Fleet enema (see 's note); no surgical indications; will see again prn at your request
[2017-10-21] MEDS ORDERED: Magnesium CITRATE* 300 ML BTL PO PRN (14:59)
[2017-10-21] MEDS ORDERED: fentaNYL PATCH 25 MCG/HR TRANSDERM SCH (15:00)
--- NOTE | 2017-10-21 15:05 | PN ---
Subjective Date of Service: 10/21/17 Interval History: C/O no BM x 6 days. Appetite fair but much nausea. Severe pain "excruciating " is constant. Objective Active Medications: Acetaminophen (Tylenol Tab*) 650 mg PO Q4H PRN PRN Reason: FEVER/PAIN Bisacodyl (Dulcolax Supp*) 10 mg NC DAILY PRN PRN Reason: CONSTIPATION Last Admin: 10/21/17 07:18 Dose: 10 mg Cyclobenzaprine HCl (Flexeril Tab*) 10 mg PO TID PRN PRN Reason: PAIN Last Admin: 10/21/17 08:43 Dose: 10 mg Fentanyl (Duragesic Patch 25 Mcg/Hr*) 25 mcg TRANSDERM Q72H [facility] Hydromorphone HCl (Dilaudid Inj*) 2 mg IV SLOW PU Q4H PRN PRN Reason: PAIN - UNCONTROLLED Lactulose (Lactulose*) 30 ml PO QID [facility] Last Admin: 10/21/17 14:15 Dose: 30 ml Magnesium Citrate (Citrate Of Magnesia*) 300 ml PO DAILY PRN PRN Reason: CONSTIPATION Ondansetron HCl (Zofran Inj*) 4 mg IV Q6H PRN PRN Reason: NAUSEA Last Admin: 10/20/17 23:24 Dose: 4 mg Ondansetron HCl (Zofran Tab*) 8 mg PO TID [facility] Oxycodone HCl (Roxycodone Tab*) 10 mg PO Q4H PRN PRN Reason: PAIN - SEVERE Polyethylene Glycol/Electrolytes (Miralax*) 34 gm PO 0800,2100 [facility] Prochlorperazine Edisylate (Compazine Inj*) 5 mg IV Q6H PRN PRN Reason: NAUSEA/VOMITING Sodium Biphosphate/Sodium Phosphate (Fleet Enema*) 1 bottle NC DAILY PRN PRN Reason: CONSTIPATION Vital Signs - 8 hr 10/21/17 10/21/17 10/21/17 07:43 07:49 08:43 Temperature 97.9 F Pulse Rate 80 Respiratory 16 22 20 Rate Blood Pressure 140/74 (mmHg) O2 Sat by Pulse 94 Oximetry 10/21/17 10/21/17 10/21/17 08:45 08:53 09:01 Temperature Pulse Rate Respiratory 20 20 20 Rate Blood Pressure (mmHg) O2 Sat by Pulse Oximetry 02/04/3010/21/17 10/21/17 10:35 11:57 12:46 Temperature 97.8 F Pulse Rate 73 Respiratory 20 16 20 Rate Blood Pressure 114/66 (mmHg) O2 Sat by Pulse 95 Oximetry 10/21/17 14:18 Temperature Pulse Rate Respiratory 18 Rate Blood Pressure (mmHg) O2 Sat by Pulse Oximetry Oxygen Devices in Use Now: None Appearance: Alert, in a chair. Seems anxious/distressed. Eyes: No Scleral Icterus Extremities: No Edema, No Clubbing, Cyanosis, - Skin: No Rash or Ulcers, No Nodules or Sclerosis, - Neurological: Alert and Oriented x 3, NL Sensation Result Diagrams: 10/21/17 06:30 10/21/17 06:30 Microbiology and Other Data: Microbiology 10/20/17 11:37 Stool Occult Blood (GEETHA) - Final Stool Assess/Plan/Problems-Billing Assessment: 62 y/o male patient presenting [place] [facility] with complaints of abd pain of unclear etiology, - Patient Problems (1) Esophageal cancer Current Visit: Yes Status: Acute Priority: High Comment: MRI thoracic and lumbar spine, pelvis pending. Start fentanyl patch and oral oxycodone PRN. Start scheduled ondansetron po. Stop IV fluids. Mag citrate prn constipation. Scheduled PEG. Status and Disposition: home when stable,
[2017-10-21] MEDS: oxyCODONE TAB* 5 MG TAB PO PRN ×2 (15:08→20:48)
--- NOTE | 2017-10-21 17:19 | RAD ---
HISTORY: Intractable back pain, known metastatic disease COMPARISONS: CT dated October 19, 2017 TECHNIQUE: The following sequences were obtained of the cervical, thoracic, and lumbar spine: Sagittal and axial T1- and T2-weighted images, coronal T2-weighted images, and sagittal STIR images. Additionally, axial and sagittal T1 weighted images were obtained after contrast enhancement with a gadolinium-based intravenous contrast agent.. FINDINGS: There is transitional anatomy with partial lumbarization of the S1 vertebral body. SPINAL CORD, CONUS, AND CAUDA EQUINA: The visualized spinal cord, conus, and cauda equina are normal in caliber, position, and signal intensity. ALIGNMENT: There is straightening with mild reversal of the normal lumbar lordosis. VERTEBRAL BODIES: There is diffuse multifocal elevated T2/STIR signal throughout the axial skeleton. There is heterogeneous enhancement of these lesions. There is no significant epidural or paravertebral extension. JOINTS: There is facet osteoarthritis most pronounced along the lower lumbar spine. There is mild costovertebral osteoarthritis. There is uncovertebral and facet osteoarthritis of the cervical spine. MUSCULATURE: Unremarkable INTERVERTEBRAL DISCS: There is diffuse loss of intervertebral disc height and T2 signal throughout the spine. AXIAL IMAGES: There is moderate neural foraminal narrowing bilaterally from C3-C4 inferiorly through C6-C7. At T12-L1, there is broad-based disc bulge, without significant neural foraminal narrowing or central stenosis. At L1-L2, there is a right paracentral superior disc extrusion measuring 0.5 cm in depth. There is no significant neural foraminal narrowing or central canal stenosis. SOFT TISSUES: There are small bilateral pleural effusions. There is an enlarged left supraclavicular fossa lymph node measuring 2.2 cm in size. OTHER: None. IMPRESSION: 1. THERE IS ABNORMAL SIGNAL DIFFUSELY THROUGHOUT THE AXIAL SKELETON WITH HETEROGENEOUS ENHANCEMENT CONSISTENT WITH DIFFUSE OSSEOUS METASTATIC DISEASE. THERE IS NO SIGNIFICANT EPIDURAL EXTENSION OR PARAVERTEBRAL EXTENSION OF TUMOR. 2. DEGENERATIVE DISC DISEASE AND OSTEOARTHRITIS. 3. THERE IS A RIGHT-SIDED DISC EXTRUSION AT L1-L2. 4. THERE IS NO SIGNIFICANT CENTRAL CANAL STENOSIS. THERE IS NEURAL FORAMINAL NARROWING OF THE CERVICAL SPINE. 5. THERE IS LEFT CERVICAL RADICULAR FOSSA LYMPHADENOPATHY. 6. THERE ARE SMALL BILATERAL PLEURAL EFFUSIONS.
[2017-10-21] MEDS: Ondansetron TAB* 4 MG PO SCH ×2 (18:25→20:48)
[2017-10-21] MEDS: fentaNYL Patch Check Q Shift 1 NOTE SCH (20:46)
[2017-10-21] MEDS: Polyethylene Glycol 3350* 17 GM PACKET PO SCH (20:47)
[2017-10-22] MEDS: oxyCODONE TAB* 5 MG TAB PO PRN (03:26)
[2017-10-22 04:49] LABS: ABS Basophils 0 10^3/ul (0-0.2); ABS Eosinophils 0 10^3/ul (0-0.6); ABS Lymphocytes 0.4 10^3/ul (1.0-4.8); ABS Monocytes 0.6 10^3/ul (0-0.8); ABS Neutrophils 2.8 10^3/ul (1.5-7.7); ABS Nucleated RBC 0 10^3/ul; Eosinophil % 0 % (0-6); Hematocrit 22 % (42-52); Hemoglobin 7.7 g/dl (14.0-18.0); Lymphocyte % 11.1 % (25-47); Mean Corpuscular HGB Conc 35 g/dl (31-36); Mean Corpuscular Hemoglobin 35 pg (27-31); Mean Corpuscular Volume 100 fL (80-94); Mean Platelet Volume 8 um3 (7.4-10.4); Nucleated Red Blood Cells % 0.1; Platelet Count 151 10^3/ul (150-450); Red Cell Distribution Width 18 % (10.5-15); White Blood Count 3.9 10^3/ul (3.5-10.8)
--- NOTE | 2017-10-22 07:18 | RAD ---
INDICATION: Intractable back pain, known osseous metastatic disease left iliac bone. COMPARISON: Comparison is made with a prior CT of the abdomen and pelvis from October 20, correlation is also made with a prior outside PET/CT study from May 24, 2017. 2018. TECHNIQUE: Axial and coronal T1 and T2-weighted images of the pelvis were obtained. In addition axial and coronal T1-weighted images were obtained following intravenous injection of 15 ml of ProHance nonionic contrast. FINDINGS: There are numerous T1 hypointense, T2 hyperintense lesions present throughout the pelvic bones, visualized portion of the lumbar spine, sacrum and proximal femurs. These demonstrate contrast enhancement and would be consistent with metastatic disease. No enlarged pelvic or inguinal lymph nodes are seen. The visualized portion of the small bowel and colon are moderately distended. There is a trace amount of free intraperitoneal fluid is seen. IMPRESSION: 1. NUMEROUS OSSEOUS METASTATIC LESIONS. THERE APPEARS TO BE SIGNIFICANT PROGRESSION FROM THE PRIOR PET/CT STUDY. 2. MODERATE DISTENTION OF THE SMALL LARGE BOWEL SUGGESTIVE OF A PARALYTIC ILEUS.
[2017-10-22] MEDS: fentaNYL Patch Check Q Shift 1 NOTE SCH (07:37)
[2017-10-22] MEDS: Ondansetron TAB* 4 MG PO SCH ×2 (09:03→12:26)
[2017-10-22] MEDS: Polyethylene Glycol 3350* 17 GM PACKET PO SCH (09:08)
[2017-10-22] MEDS ORDERED: Magnesium CITRATE* 300 ML BTL PO ONE (09:15)
[2017-10-22] MEDS: Bisacodyl SUPP* 10 MG SUPP PR PRN (09:21)
--- NOTE | 2017-10-22 09:22 | PN ---
Subjective Date of Service: 10/22/17 Interval History: Used oxycodone twice since my last visit, adequate pain control. He thinks some of his pain is due to constipation. Objective Active Medications: Acetaminophen (Tylenol Tab*) 650 mg PO Q4H PRN PRN Reason: FEVER/PAIN Bisacodyl (Dulcolax Supp*) 10 mg IA DAILY PRN PRN Reason: CONSTIPATION Last Admin: 10/21/17 07:18 Dose: 10 mg Cyclobenzaprine HCl (Flexeril Tab*) 10 mg PO TID PRN PRN Reason: PAIN Last Admin: 10/21/17 08:43 Dose: 10 mg Fentanyl (Duragesic Patch 25 Mcg/Hr*) 25 mcg TRANSDERM Q72H [facility] Last Admin: 10/21/17 17:22 Dose: 25 mcg Hydromorphone HCl (Dilaudid Inj*) 2 mg IV SLOW PU Q4H PRN PRN Reason: PAIN - UNCONTROLLED Lactulose (Lactulose*) 30 ml PO QID [facility] Last Admin: 10/22/17 09:03 Dose: 30 ml Magnesium Citrate (Citrate Of Magnesia*) 300 ml PO DAILY PRN PRN Reason: CONSTIPATION Last Admin: 10/21/17 20:47 Dose: 300 ml Magnesium Citrate (Citrate Of Magnesia*) 300 ml PO ONCE ONE Stop: 10/22/17 09:16 Ondansetron HCl (Zofran Inj*) 4 mg IV Q6H PRN PRN Reason: NAUSEA Last Admin: 10/20/17 23:24 Dose: 4 mg Ondansetron HCl (Zofran Tab*) 8 mg PO TID [facility] Last Admin: 10/22/17 09:03 Dose: 8 mg Oxycodone HCl (Roxycodone Tab*) 10 mg PO Q4H PRN PRN Reason: PAIN - SEVERE Last Admin: 10/22/17 03:26 Dose: 10 mg Pharmacy Profile Note (Fentanyl Patch Check Q Shift) 1 note N/A 0700,1900 [facility] Last Admin: 10/22/17 07:37 Dose: 1 note Polyethylene Glycol/Electrolytes (Miralax*) 34 gm PO 0800,2100 [facility] Last Admin: 10/22/17 09:08 Dose: Not Given Prochlorperazine Edisylate (Compazine Inj*) 5 mg IV Q6H PRN PRN Reason: NAUSEA/VOMITING Sodium Biphosphate/Sodium Phosphate (Fleet Enema*) 1 bottle IA DAILY PRN PRN Reason: CONSTIPATION Vital Signs - 8 hr 10/22/17 10/22/17 10/22/17 03:21 03:26 05:57 Temperature 98.4 F Pulse Rate 76 Respiratory 16 16 14 Rate Blood Pressure 136/75 (mmHg) O2 Sat by Pulse 90 Oximetry Oxygen Devices in Use Now: None Appearance: Alert, partly up in bed. In fair spirits. Looks comfortable but somewhat anxious. Extremities: No Edema, No Clubbing, Cyanosis, - Skin: No Rash or Ulcers, No Nodules or Sclerosis, - Neurological: Alert and Oriented x 3, NL Sensation Result Diagrams: 10/22/17 04:26 10/21/17 06:30 Microbiology and Other Data: Microbiology 10/20/17 11:37 Stool Occult Blood (GEETHA) - Final Stool Assess/Plan/Problems-Billing Assessment: 62 y/o male patient presenting to [facility] [place] with complaints of abd pain of unclear etiology, - Patient Problems (1) Esophageal cancer Current Visit: Yes Status: Acute Priority: High Comment: MRI thoracic and lumbar spine, pelvis showed extensive metastases, increased since prior exam. Continue fentanyl patch and PRN oral oxycodone, scheduled ondansetron po. Repeat mag citrate 10/22. Continue scheduled lactulose and PEG. Discussed with Dr. Banks. Status and Disposition: home when stable,
[2017-10-22] MEDS ORDERED: fentaNYL PATCH 50 MCG/HR TRANSDERM SCH (12:00)
--- NOTE | 2017-10-22 12:02 | PN ---
"Progress Note - Progress Note Date of Service: 10/22/17 Note: Time spent on discharge 55 minutes. This report was requested by: Stuart Acosta | Reference #: [id number] Others' Prescriptions Patient Name: Jordan Beckett Date: 1955 Address: [address] [place] [address] Sex: Male Rx Written Rx Dispensed Drug Quantity Days Supply Prescriber Name 08/20/2017 08/20/2017 lorazepam 0.5 mg tablet 120 30 Carin Starks Y 06/09/2017 06/09/2017 diphenoxylate-atropine 2.5-0.025 mg tablet 240 30 Carin Starks Y 06/03/2017 06/03/2017 lorazepam 0.5 mg tablet 90 23 Elissa Larry"
[2017-10-22 14:07] VITALS: BP 123/72
--- NOTE | 2017-10-23 11:05 | DS ---
CC: Dr. Juarez; Dr. Banks; Dr. Mari DISCHARGE SUMMARY: DATE OF ADMISSION: 10/19/17 DATE OF DISCHARGE: 10/22/17 HISTORY OF PRESENT ILLNESS: This 62-year-old man that presented with abdominal pain. He had been tr eated at [facility] for advanced esophageal cancer. He was quite constipated; said he had not had a bowel movement for several days. He had increasing amounts of laxatives in the hospital with actually no results. I expect that he wi ll be able to have a bowel movement soon at home. He had a bisacodyl suppository, a Fleet Enema. He will continue to take lactulose 30 mL q.i.d. and MiraLAX 34 g b.i.d. He had a bottle of mag citrate , which unfortunately he took many hours to consume. He will take home a bottle of mag citrate and d rink it within 10 minutes at home. His pain was adequately controlled. We started him on a fentanyl patch and then on the day of discha rge it is being increased to 50 mcg per 24 hours to be changed every 72 hours. He was given a prescr iption for oxycodone 5 mg tablets to take 2 every 4 hours p.r.n., dispensed 80 with no refills. He was seen by Dr. Juarez and Dr. Banks. They will follow up with him. He was referred to hospice services. He had an MRI of the pelvis, lumbar, and thoracic spine, all 3 of which showed extensive bony metasta ses likely progressed from previous examinations. FINAL DIAGNOSES: 1. Advanced esophageal carcinoma. 2. Constipation. DISCHARGE MEDICATIONS: 1. Lactulose 30 mL q.i.d. 2. Magnesium citrate 300 mL daily p.r.n. 3. Oxycodone 5 mg 2 tablets every 4 hours p.r.n. 4. Polyethylene glycol 34 g b.i.d. 5. Fentanyl patch 50 mcg, change every 72 hours. 6. Ondansetron 8 mg 1 t.i.d. 7. Aspirin 325 mg daily p.r.n. [id number]/[facility] #: [id number]
== END 2017-10-22 14:09 | disposition home or self-care (01) | DRG 343 ==
LOC: ED 12:59 → MED 18:46
PROVIDERS: ADMIT Internal Medicine; ATTEND Internal Medicine
PROC: 30233N1 Transfusion of Nonautologous Red Blood Cells into Peripheral Vein, Percutaneous Approach (ICD-10-PCS; principal; 2017-10-20)
DX: C79.51 Secondary malignant neoplasm of bone (principal); C15.9 Malignant neoplasm of esophagus, unspecified; K59.00 Constipation, unspecified; D64.9 Anemia, unspecified; Z79.82 Long term (current) use of aspirin; Z88.1 Allergy status to other antibiotic agents; Z88.0 Allergy status to penicillin; Z80.3 Family history of malignant neoplasm of breast; Z80.0 Family history of malignant neoplasm of digestive organs; Z80.42 Family history of malignant neoplasm of prostate
CPT/HCPCS: 36415; 71045; 72131; 72157; 72158; 72197; 74176; 74177; 80048; 80053; 81003; 82140; 82150; 82272; 82550; 82607; 82728; 82746; 83010; 83540; 83550; 83605; 83615; 83690; 83735; 83921; 85014; 85018; 85025; 85045; 85610; 86140; 86850; 86880; 86900; 86901; 86922; 87502; 99233; 99284; A9270-GY; A9579; J1170; J1642; J1644; J2060; J2270; J2405; J3010; P9040; Q9967